=== PATIENT | female | born 1990 | race Caucasian/White ===

== ENCOUNTER → 2016-11-21 | Day surgery (SDC) | payer OTHER ==
[~2016-11-21] MED LIST: BACITRACIN IM FOR SOLN 50,000 UNIT VIAL ONE; BUPIVACAINE HCL PF 0.75% 30 ML VIAL ONE; BUPIVACAINE/EPINEPHRINE 0.25% 50 ML VIAL ONE; EPINEPHrine HCL (1:1000) 30 MG/30 ML VIAL ONE; KETOROLAC TROMETHAMINE 30 MG/ML (IVP) VIAL IV PUSH ONE; LACTATED RINGER'S 1000 ML INJ 1,000 ML ONE; LIDOCAINE 1.5%/EPINEPHrine 1:200,000 PF SOLN 30 ML AMP ONE; MIDAZOLAM HCL 5 MG/ML VIAL (1 ML) ONE; ONDANSETRON HCL 4 MG/2 ML VIAL IV PUSH ONE; PROPOFOL 500 MG/50 ML BTL IV ONE; SODIUM CHLORIDE 0.9% INJ 10 ML ONE; ceFAZolin INJ 1,000 MG VIAL ONE; oxyCODONE/ACETAMINOPHEN 5 MG/325 MG TAB ONE
--- NOTE | 2016-11-21 13:00 | TN ---
cc: JAVIER WANG M.D. DATE OF SURGERY 11/21/2016 PREOPERATIVE DIAGNOSIS Right knee ACL rupture with instability. POSTOPERATIVE DIAGNOSIS 1. Right knee ACL rupture with instability. 2. Right knee medial meniscus tear. PROCEDURE PERFORMED 1. Right knee arthroscopically assisted anterior cruciate ligament reconstruction utilizing the Arthrex Transfix system and tibialis allograft. 2. Right knee arthroscopic partial medial meniscectomy. SURGEON Javier Wang MD ANESTHESIA General via laryngeal mask augmented by femoral nerve block and local infiltration BLOOD LOSS Minimal FLUID REPLACEMENT A liter of Crystalloid TOURNIQUET TIME 124 minutes at 300 mmHg. DRAINS No drains were utilized. IMPLANTS Consisted of the tibialis allograft measuring 10 mm x 150 mm folded, Implants consisted of a 50 mm Transfix post for the femur and I initially began to implant a 7 mm x 23 mm interference screw, but I felt that fixation was inadequate, so I went ahead and removed that and fixed her distally over a post with the use of a 5.5 mm Bio Corkscrew Arthrex anchor and a 4.75 mm Bio Corkscrew anchor. COUNTS All counts were correct. INTRAOPERATIVE COMPLICATIONS Nytinol guidewire broke in two during removal but was fully removed. INDICATIONS FOR PROCEDURE Soniya is a 26-year-old young lady who has had a known history of a right knee anterior cruciate ligament rupture that occurred originally on June 25 of this year. She reports that she had inadequate relief of her discomfort with conservative management and continued to be unstable despite bracing and physical therapy. In order to improve stability of her knee, she is being taken the operating room for arthroscopic ACL reconstruction. She was comfortable with my recommendation of allograft in terms of a speedier recovery and her questions were fully answered to her satisfaction. She was also given the option of ongoing conservative management which carries far less risks, but ongoing instability is an issue and she was very eager to pursue surgical stabilization. She also understood the other risks of bleeding, infection, stiffness, need for possible rehabilitation and possible reinjury. DESCRIPTION OF PROCEDURE After the patient was verbally identified in the holding area, she correctly marked her right leg and then underwent a femoral nerve block by Dr. Colby and was also given one gram of intravenous Ancef. She was then taken into the operating suite where she was placed under general laryngeal mask anesthetic by Dr. Colby. At this time, a very well-padded thigh-high tourniquet was applied high on the right leg and then her legs were placed into a leg holding device taking care to very carefully pad the down surface of the thighs and to prevent any metal on metal contact. Please note that the leg belle was utilized directly around the tourniquet on the right leg and around a very well-padded area on the left leg. At this time, she was prepped with alcohol and Hibiclens and then draped in the normal standard fashion including the use of impervious stockinette from the foot all the way up to the mid tibial level. At this time, a brief time-out was held confirming the right leg was the appropriate surgical site. The team was in agreement and the case was now begun. Her right leg was elevated and then exsanguinated with an Magdiel wrap and the tourniquet was raised to 300 mmHg. Standard anteromedial and anterolateral joint line portals were established. Inflow was initiated. A small bloody effusion was evacuated. The joint survey was as follows. The suprapatellar pouch showed minimal evidence of any synovitis or evidence of significant chondromalacia. The patella tracked centrally throughout a range of motion and did show some capsular thickening especially superiorly and medially consistent with a small plica. Attention was now directed to the medial gutter. There was no evidence of any loose bodies or significant synovitis, but as I further went into the medial compartment, I saw a tear going from the midbody of the medial meniscus towards the anterior horn. There was also some adherent synovial tissue in this region as well. A limited synovectomy was performed and then I went ahead and performed a partial medial meniscectomy with the use of an oscillating shaver. Hand instruments were not necessary. Most of the meniscus remained intact and it was quite stable to probing and would not sublux into the joint. At this time, the intercondylar notch was now explored. There was clear evidence of a full rupture of the anterior cruciate ligament. A few fibers had healed down to the posterior cruciate ligament, but nothing remained attached to the intercondylar notch roof. The lateral compartment was now entered. There was no evidence of any significant tearing seen of the lateral meniscus or chondromalacia of the lateral femoral condyle or lateral tibial plateau. No loose bodies were identified. No hypertrophic capsular tissue was encountered and there was no evidence of any need for further procedures done to the lateral compartment. I went ahead a return to the intercondylar notch at this point in time due to the fact that she clearly had instability with anterior/posterior drawer maneuvers and the ACL was absent. We went ahead and began to defrost the tibialis allograft measuring 10 mm folded x 150 mm folded which was adequate based on my anticipation from her measurement of her x-rays. We went ahead and slowly brought it to room temperature kept moistened with gauze and then two FiberWire loop sutures were then placed over the tail ends leaving adequate graft length for traversing from femoral socket through tibial socket exiting the tibial face. The graft was kept somewhat moistened on the back table, but not submerge underwater and it fit well through a #10. It would not fit through a 9.5 size, but would easily fit through 10.5. At this time, a notchplasty was performed with a bur and then the [id number] position was clearly identified with the use of a nerve probed. I was certain that a resident ridge was not remaining and I went ahead and debrided some of the ACL scar as well as further delineated the ACL footprint quite well with the electrocautery. Please note that a partial medial meniscectomy and limited synovectomy was performed prior to the meniscal work being done. At this time, the tibial drill guide was placed through the tibial tunnel. I went ahead and placed the tibial drill guide to be directly at the anatomic footprint of the ACL abutting the posterior cruciate ligament and then the anteromedial face of the tibia was utilized as the starting point using the 60-mm setting to maximize the length of the tibial tunnel. We went ahead and made a foreign on the skin and a 2-cm incision was made at this site and underwater electrocautery was utilized to subperiosteally dissect the bone at this level. The drill guide was then press down to the surface of the cortex of the bone and then a flipped cutter guide pin was utilized to drill in a retrograde fashion into the joint exiting directly through the anticipated footprint of the ACL and then the flip cutter was then engaged in order to cut a 10 mm tunnel from the tibial surface anterograde out to the tibial plateau. Once this was completed, I felt as though the tunnel was adequate. The shaver was utilized to further smooth the bullard and I inspected it from above and it appeared to be perfectly adequate. At this time, further debris was debrided from the knee joint and then I went ahead and placed an [id number] guide in the 11 o'clock position on the roof of the notch and then a retrograde guidewire was then placed up into the femur and then a 10 mm socket was drilled on the femoral side without difficulty. Please note that the Transfix guide was utilized to drill the femoral socket and the transfemoral pin was placed without difficulty from lateral to medial taking care to get down to the cortical surface of the bone. Once this was drilled across, it was exchanged with a guidewire and I verified that the guidewire had good capture of the Transfix femoral socket guide I went ahead and overdrilled the cortex laterally to accept the post collar and then went ahead and pulled the nitinol wire across the knee and then out through the femoral socket through the joint out the tibial tunnel exposing it directly on the anteromedial face of the tibia in preparation for pulling the graft back through the knee. Our graft was then set directly over top of the loop exiting the tibial tunnel and then we advance the graft progressively through the tibial tunnel, across the joint space and into the femoral socket without difficulty. Deepened end of the socket exactly and where we anticipated approximately 25 mm and the guide wire was able to slid from left to the right convincing as that the tension was out of the graft fully. I went ahead now in place the Transfix post over the femoral guide pin from lateral to medial taking care to get good fixation all the way down and hammered it down to the cortex and then went ahead and removed the guide wire which hung up and as I pulled medial to lateral, the guidewire broke, but then when I pulled lateral to medial, I was able to get out of the remaining portion of the guidewire. The in store marketing representative assured me that the guidewire was it least as long, if not longer than normal from stretch. I went ahead and placed tension on the graft as a test and I was well fixed in the femoral socket. At this time , I went ahead and began putting a flexible guide pin up the tibial tunnel in order to get good interference fixation with the graft and I initially went with a 7 x 23 screw. I was having a great deal of difficulty getting the screw even though it was downsized to get adequate fixation within the tunnel and even with impacting the train driver onto the interference screw, it was still unable to get it to purchase. Finally, I went ahead and impacted a bit further and then unfortunately the train driver then stayed attached on the screw head and was unable to disengage it even though I was beginning to get purchase. In order to prevent this from being a problem or graft was damaged and was no longer utilizible, I elected to secure her over a post on the tibial side. I went ahead and drilled two 3.5 mm cortical holes on the anteromedial face of the tibia distal to the tibial tunnel and tapped them with a 5.5. mm tap. I utilized the sutures that were used to form the graft and I actually fix them in position initially with a 5.5 mm Bio Cork screw which I felt with produced adequate fixation, but the upper two threads of the screw would not countersink and I feared breaking it so I went ahead and did not try to countersink it any further and went ahead and sheared off those two threads so they would not be prominent. We did get some fixation with all four sutures with this, but in order to be certain that we would not have problems loosening, I went ahead and placed a second 3.5-mm unicortical drill hole then used a 5.5 mm tap distal to the first anchor and then used a the hardness of her bone and then placed a 4.75 mm Bio PushLock getting excellent fixation, countersinking it just below the level of the cortex. I felt that this produced excellent backup fixation for our secondary point of fixation on the tibial side of the graft. The graft at this point appeared to be quite solid both on the femoral and tibial side. It did not excessively tighten in flexion or extension and there was no longer any impingement appreciated. I irrigated out the joint one final time, removed a bit of remaining and debris, suctioned decompressed the knee and then thoroughly irrigated out the wounds. Please note that the tibial tunnel wound was made a little bit larger in order to get better fixation down to the surface of the bone and the rest of the wounds were thoroughly irrigated and closed with 3-0 nylon simple sutures. The tibial tunnel, due to its size, was closed initially with 2-0 Vicryl inverted subcutaneous stitches and then with 3-0 nylon sutures. 30 cc of 0.25% Marcaine with epinephrine was then infiltrated subcutaneously, as well as, intraarticularly for postop pain relief. Xeroform, 4x4s, ABD's were applied to the leg. The tourniquet was immediately let down at this point in time, having just slightly over two hours at 124 minutes. She reestablished distal pulses quite quickly both at the dorsalis pedis and posterior tibial pulses and was placed into a drop lock hinged knee brace in extension, awoken from anesthesia and taken to recovery in stable condition. Appropriate postoperative orders have been written. Javier Wang MD Electronically Signed MD PHILLIP Harris/ANNEL /11:54 AM /12:31 PM MTDD
== END | disposition home or self-care (01) ==
LOC: ESDC 07:14
PROVIDERS: ATTEND Orthopaedic Surgery Sports Medicine
DX: S83.511A Sprain of anterior cruciate ligament of right knee, initial encounter (principal); S83.206A Unspecified tear of unspecified meniscus, current injury, right knee, initial encounter
CPT/HCPCS: 01400; 01991; 29881; 29888; 64447; C1713; J0171; J0690; J1885; J2250; J2405; J3010; J7120